=== PATIENT | female | born 1995 | race Hispanic/Latino ===

== ENCOUNTER 2017-08-17 15:55 | Emergency (ER) | payer OTHER ==
[~2017-08-17] VITALS: Ht 157.5 cm; Wt 59.0 kg
[~2017-08-17 15:55] MED LIST: BACTRIM DS1 TAB PO; CIPROFLOXACN500 MG PO; PYRIDIUM200 MG PO; ULTRAM50 MG PO
[2017-08-17] MEDS ORDERED: MOTRIN800 MG PO (16:21)
[2017-08-17] MEDS ORDERED: SEPTRA PO (16:21)
[2017-08-17 16:27] VITALS: BP 128/88
== END 2017-08-17 16:32 | disposition home or self-care (01) | DRG 603 ==
LOC: ED 15:55
PROC: 0H9CXZZ Drainage of Left Upper Arm Skin, External Approach (ICD-10-PCS; principal; 2017-08-17)
DX: L02.412 Cutaneous abscess of left axilla (principal)

== ENCOUNTER 2017-08-18 15:46 | Emergency (ER) | payer OTHER ==
[~2017-08-18] VITALS: Ht 157.5 cm; Wt 80.0 kg
[~2017-08-18 15:46] MED LIST changes: +MOTRIN800 MG PO; +SEPTRA PO
[2017-08-18 16:31] VITALS: BP 122/80
== END 2017-08-18 16:36 | disposition home or self-care (01) | DRG 951 ==
LOC: ED 15:46
DX: Z48.01 Encounter for change or removal of surgical wound dressing (principal); L02.412 Cutaneous abscess of left axilla